=== PATIENT | male | born 1985 | race Caucasian/White ===

== ENCOUNTER → 2018-05-11 | Outpatient (CLI) | payer OTHER ==
--- NOTE | 2018-05-11 18:30 | ECHOCARDIOGRAM REPORT ---
*NOTICE TO RECEIVING CONSTITUTION PARTY AGENCY This information is strictly Confidential and protected under [place] law. [place] law prohibits you from making any further disclosure of this information unless further disclosure is expressly permitted by the written consent of the person to whom it pertains or is authorized by law. A general authorization for the release of medical or other information is not sufficient for this purpose. Hospital accepts no responsibility if the information is made available to any other person, INCLUDING THE PATIENT. Interpretation Summary * Name: KARLY THOMASON Study Date: 05/11/2018 12:48 PM BP: 120/72 mmHg * [facility]: [facility] HR: 54 * : 1985 (M/d/yyyy) Gender: Male Height: 72 in * Age: 32 yrs Weight: 150 lb * Ordering Physician: Hernandez Batista * Referring Physician: Hernandez Batista * Performed By: Edwin Burger RCS * * Reason For Study: Palpitations, Dyspnea * BSA: 1.9 m2 * -- Conclusions -- * 1. Normal LV size. Normal LV wall thickness. * 2. Normal LV systolic function. LVEF 60-65%. No regional wall motion abnormalities. * 3. Normal RV size and function. * 4. Mild mitral regurgitation * 5. No prior studies for comparison. Procedure Details * A complete two-dimensional transthoracic echocardiogram was performed (2D, M-mode, Doppler and color flow Doppler). Left Ventricle * The left ventricle is grossly normal size. * There is normal left ventricular wall thickness. * Ejection Fraction = 60-65%. * No regional wall motion abnormalities noted. Right Ventricle * The right ventricle is grossly normal size. * The right ventricular systolic function is normal as assessed by tricuspid annular plane systolic excursion (TAPSE) (normal >1.5 cm). Atria * The left atrial size is normal. * Right atrial size is normal. * No ASD detected; PFO is not assessed. Mitral Valve * The mitral valve is grossly normal. * There is no mitral valve stenosis. * There is mild mitral regurgitation. Tricuspid Valve * There is trace tricuspid regurgitation. Aortic Valve * The aortic valve is trileaflet. * No hemodynamically significant valvular aortic stenosis. * There is no significant aortic regurgitation. Pulmonic Valve * The pulmonary valve is inadequately visualized, but the Doppler data is adequate for interpretation. * There is no pulmonic valvular stenosis. * There is no significant pulmonary regurgitation. Great Vessels * The aortic root and proximal ascending aorta are normal sized. Pericardium/Pleural * There is no pericardial effusion. Great Vessels * Normal inferior vena cava size and collapsability with sniff indicates a normal right atrial pressure of 3 mmHg MMode 2D Measurements and Calculations IVSd 10 cm IVSs 1.2 cm LVIDd 4.6 cm LVIDs 2.7 cm LVPWd 0.87 cm LVPWs 1.2 cm IVS/LVPW 1.1 FS 42.2 % EDV(Teich) 97.9 ml ESV(Teich) 26.2 ml EF(Teich) 73.3 % EDV(cubed) 98.1 ml ESV(cubed) 18.9 ml EF(cubed) 80.7 % % IVS thick 24.9 % % LVPW thick 36.4 % LV mass(C)d 144.9 grams LV mass(C)dI 76.9 grams/m\S\2 LV mass(C)s 94.8 grams LV mass(C)sI 50.3 grams/m\S\2 SV(Teich) 71.7 ml SI(Teich) 38.1 ml/m\S\2 SV(cubed) 79.1 ml SI(cubed) 42.0 ml/m\S\2 Ao root diam 3.6 cm Ao root area 10.1 cm\S\2 ACS 1.6 cm LA dimension 3.0 cm asc Aorta Diam 2.6 cm LA/Ao 0.82 EDV(MOD-sp4) 104.0 ml ESV(MOD-sp4) 51.0 ml EF(MOD-sp4) 51.0 % EDV(MOD-sp2) 116.0 ml ESV(MOD-sp2) 45.0 ml EF(MOD-sp2) 61.2 % SV(MOD-sp4) 53.0 ml SI(MOD-sp4) 28.1 ml/m\S\2 SV(MOD-sp2) 71.0 ml SI(MOD-sp2) 37.7 ml/m\S\2 Doppler Measurements and Calculations MV E max charlie 115.7 cm/sec MV A max charlie 72.2 cm/sec MV E/A 1.6 MV P1/2t max charlie 108.3 cm/sec MV P1/2t 71.9 msec MVA(P1/2t) 3.1 cm\S\2 MV dec slope 440.8 cm/sec\S\2 MV dec time 0.25 sec Ao V2 max 137.0 cm/sec Ao max PG 7.5 mmHg Ao max PG (full) 1.6 mmHg LV V1 max PG 5.9 mmHg LV V1 max 121.3 cm/sec PA V2 max 99.2 cm/sec PA max PG 3.9 mmHg
== END | disposition home or self-care (01) ==
LOC: C.CPL 12:46
PROVIDERS: ATTEND Family Medicine
DX: R00.2 Palpitations (principal); R42 Dizziness and giddiness